=== PATIENT | male | born 1955 | race Caucasian/White ===

== ENCOUNTER 2016-05-09 09:40 | Emergency (ER) | payer MEDICAID ==
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
[2016-05-09] MEDS: IPRATROPIUM/ALBUTEROL (0.5MG/3MG) NEB INH ONE (11:28)
--- NOTE | 2016-05-11 15:51 | RADIOLOGY REPORT ---
DATE: 05/09/2016 at 10:24 a.m. EXAM: CHEST, TWO VIEWS. HISTORY: Cough and chest pain for five days. Chronic obstructive pulmonary disease. TECHNIQUE: Upright PA and lateral views of the chest were obtained. COMPARISON: Two-view chest radiographic examination dated 08/27/2015. FINDINGS: The heart is normal in size, and the pulmonary vasculature is nondilated. The thoracic aorta is mildly tortuous and atherosclerotic. The lungs and pleural spaces are clear. There are degenerative changes scattered throughout the visualized spine. IMPRESSION: NO RADIOGRAPHIC EVIDENCE OF ACUTE CARDIOPULMONARY DISEASE WITHOUT SIGNIFICANT CHANGE SINCE 08/27/2015. JOB NUMBER: [id number] MTDD
== END 2016-05-09 11:46 | disposition home or self-care (01) ==
LOC: ER 09:40
DX: J44.0 Chronic obstructive pulmonary disease with (acute) lower respiratory infection (principal); J20.9 Acute bronchitis, unspecified; J44.1 Chronic obstructive pulmonary disease with (acute) exacerbation; Z87.891 Personal history of nicotine dependence
CPT/HCPCS: 71020; 94640; 99283; 99284

== ENCOUNTER 2017-11-08 11:10 | Emergency (ER) | payer MEDICAID ==
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
[2017-11-08] MEDS ORDERED: FUROSEMIDE IV 40MG/4ML VIAL IVP ONE (12:10)
[2017-11-08 12:14] LABS: BASO % 0.8 % (0-6); EOS % 1.4 % (0-6); GRAN % 59.3 % (47-80); HEMATOCRIT 40.2 % (42.0-52.0); HEMOGLOBIN 13.5 gm/dl (14.0-18.0); LYMPH % 29.4 % (16-45); MEAN CELL VOLUME 89.5 fl (81-97); MEAN CORPUSCULAR HGB CONC 33.6 g/dl (32-36); MEAN PLATELET VOLUME 10.6 fl (7.4-10.4); MONO % 9.1 % (0-9); PLATELET COUNT 139 K/uL (130-400); RED BLOOD COUNT 4.49 M/uL (4.40-5.70); RED CELL DISTRIBUTION WIDTH 12.8 % (11.5-14.5); WHITE BLOOD COUNT W/O DIFF 5.1 K/uL (4.2-12.2)
[2017-11-08 12:23] LABS: URINE APPEARANCE CLEAR; URINE BILIRUBIN NEGATIVE (NEGATIVE); URINE BLOOD NEGATIVE (NEGATIVE); URINE COLOR YELLOW; URINE GLUCOSE (UA) NEGATIVE (NEGATIVE); URINE KETONE NEGATIVE (NEGATIVE); URINE LEUKOCYTE ESTERASE NEGATIVE (NEGATIVE); URINE NITRITE NEGATIVE (NEGATIVE); URINE PROTEIN NEGATIVE (NEGATIVE); URINE UROBILINOGEN 0.2 E.U./dL (0.20 - 1.00)
[2017-11-08 12:27] LABS: BLOOD UREA NITROGEN 13 mg/dL (8-23); CREATININE 0.8 mg/dL (0.7-1.2); EST GLOMERULAR FILTRATION RATE > 60 mL/min
[2017-11-08 12:28] LABS: PARTIAL THROMBOPLASTIN TIME 26.7 SECONDS (24.5-39.1); PROTHROMBIN TIME (PATIENT) 10.7 SECONDS (9.5-12.1); TOTAL PROTEIN 6.8 g/dL (6.6-8.7)
[2017-11-08 12:30] LABS: GLUCOSE,RANDOM 209 mg/dL (74-109)
[2017-11-08 12:32] LABS: ALT/SGPT 17 U/L (<41)
[2017-11-08 12:33] LABS: ALBUMIN 4.1 g/dL (4.0-5.0); ALKALINE PHOSPHATASE 41 U/L (40-129); AST/SGOT 18 U/L (10.0-50.0); LIPASE 14 U/L (13-60)
[2017-11-08 12:40] LABS: AMMONIA 27 umol/L (16.0-60.0)
[2017-11-08 13:03] LABS: BILIRUBIN,DIRECT < 0.2 mg/dL (0-0.3)
--- NOTE | 2017-11-09 10:53 | RADIOLOGY REPORT ---
EXAM: CHEST, TWO VIEWS HISTORY: DIFFICULTY IN BREATHING. TECHNIQUE: Frontal and lateral views of the chest were performed. Comparison: 05/09/16. FINDINGS: The heart size is normal. The lung soto are clear. The osseous structures are normal. IMPRESSION: NEGATIVE CHEST EXAMINATION. JOB NUMBER: [id number] MTDD
== END 2017-11-08 14:23 | disposition home or self-care (01) ==
LOC: ER 11:10
DX: K70.31 Alcoholic cirrhosis of liver with ascites (principal); R10.11 Right upper quadrant pain; R06.02 Shortness of breath; J44.9 Chronic obstructive pulmonary disease, unspecified; I10 Essential (primary) hypertension; E11.9 Type 2 diabetes mellitus without complications; Z87.891 Personal history of nicotine dependence; Z79.4 Long term (current) use of insulin
CPT/HCPCS: 71046; 80048; 80076; 81003; 82140; 83690; 84484; 85025; 85610; 85730; 93005; 93010; 96374; 99284; J1940

== ENCOUNTER 2018-05-28 11:59 | Emergency (ER) | payer MEDICAID ==
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
[2018-05-28 12:28] LABS: BASO % 0.3 % (0-6); EOS % 0.6 % (0-6); GRAN % 74.6 % (47-80); HEMATOCRIT 45.5 % (42.0-52.0); HEMOGLOBIN 14.9 gm/dl (14.0-18.0); MEAN CELL VOLUME 88.2 fl (81-97); MEAN CORPUSCULAR HEMOGLOBIN 28.9 pg (27-33); MEAN CORPUSCULAR HGB CONC 32.7 g/dl (32-36); MEAN PLATELET VOLUME 10.6 fl (7.4-10.4); MONO % 6.5 % (0-9); PLATELET COUNT 202 K/uL (130-400); RED BLOOD COUNT 5.16 M/uL (4.40-5.70); RED CELL DISTRIBUTION WIDTH 14.1 % (11.5-14.5); WHITE BLOOD COUNT W/O DIFF 6.8 K/uL (4.2-12.2)
[2018-05-28 12:30] LABS: URINE APPEARANCE CLEAR; URINE BILIRUBIN NEGATIVE (NEGATIVE); URINE BLOOD NEGATIVE (NEGATIVE); URINE COLOR YELLOW; URINE KETONE NEGATIVE (NEGATIVE); URINE LEUKOCYTE ESTERASE NEGATIVE (NEGATIVE); URINE NITRITE NEGATIVE (NEGATIVE); URINE PROTEIN NEGATIVE (NEGATIVE); URINE UROBILINOGEN 0.2 E.U./dL (0.20 - 1.00)
[2018-05-28 12:32] LABS: URINE GLUCOSE (UA) >=1000 mg/dL (NEGATIVE)
[2018-05-28 12:39] LABS: BLOOD UREA NITROGEN 15 mg/dL (8-23)
[2018-05-28 12:40] LABS: CREATININE 0.9 mg/dL (0.7-1.2); EST GLOMERULAR FILTRATION RATE > 60 mL/min; LIPASE 14 U/L (13-60); TOTAL PROTEIN 8.3 g/dL (6.6-8.7)
[2018-05-28 12:42] LABS: GLUCOSE,RANDOM 220 mg/dL (74-109)
[2018-05-28 12:45] LABS: ALBUMIN 4.6 g/dL (4.0-5.0); ALKALINE PHOSPHATASE 54 U/L (55-149); ALT/SGPT 19 U/L (<41); AST/SGOT 18 U/L (10.0-50.0); BILIRUBIN,DIRECT < 0.2 mg/dL (0-0.3)
[2018-05-28] MEDS ORDERED: KETOROLAC 30 MG/ML VIAL IVP ONE (13:14)
--- NOTE | 2018-05-29 12:59 | CT SCAN REPORT ---
EXAM: NONCONTRAST CT OF THE ABDOMEN AND PELVIS HISTORY: RIGHT FLANK PAIN FOR TWO DAYS. TECHNIQUE: Noncontrast CT of the abdomen and pelvis was obtained. Comparison: CT of the abdomen and pelvis 06/22/11. FINDINGS: The lung bases are clear. Coronary artery calcifications are noted. Unremarkable noncontrast CT appearance of the liver, spleen, and adrenal glands. Fatty atrophy of the pancreas. Small calculus near the neck of the gallbladder. No appreciable biliary dilation. No hydronephrosis. No intrarenal calculi detected. No ureteral calculi detected. Nonspecific bilateral perinephric stranding. Left lower renal pelvic cyst. Diffuse colonic diverticulosis without evidence of acute diverticulitis. The stomach and small bowel are nondilated. No free air or free fluid. Aortoiliac arterial access is calcified and mildly tortuous without aneurysmal dilatation. No mesenteric or retroperitoneal adenopathy is identified. Unremarkable appearance of the urinary bladder. Thoracolumbar spine degenerative findings. Right greater than left femoroacetabular osteoarthrosis. IMPRESSION: 1. NO ACUTE ABDOMINAL OR PELVIC FINDINGS. NO EVIDENCE OF OBSTRUCTIVE UROPATHY OR UROLITHIASIS. 2. CHOLELITHIASIS. 3. COLONIC DIVERTICULOSIS WITHOUT EVIDENCE OF ACUTE DIVERTICULITIS. 4. CORONARY ARTERY CALCIFICATIONS. JOB NUMBER: [id number] [facility]
== END 2018-05-28 14:06 | disposition home or self-care (01) ==
LOC: ER 11:59
DX: R10.11 Right upper quadrant pain (principal); J44.9 Chronic obstructive pulmonary disease, unspecified; I10 Essential (primary) hypertension; E11.9 Type 2 diabetes mellitus without complications; Z87.891 Personal history of nicotine dependence; Z79.4 Long term (current) use of insulin; Z87.442 Personal history of urinary calculi
CPT/HCPCS: 74176; 80048; 80076; 81003; 83690; 85025; 96374; 99284; J1885